=== PATIENT | male | born 1960 | race Caucasian/White ===

== ENCOUNTER 2016-04-30 07:02 | Inpatient (IN) ==
--- NOTE | 2016-04-29 21:15 | Discharge Summary ---
<Etelvina Coronado - Last Filed: 04/29/16 21:13> Date of Encounter: 04/29/16 - Discharge Diagnosis (1) Rotator cuff tear arthropathy of right shoulder Priority: Primary Status: Acute (2) Status post total shoulder arthroplasty Priority: Primary Status: Acute Qualifiers: Laterality: right Qualified Code(s): Z96.611 - Presence of right artificial shoulder joint (3) COPD (chronic obstructive pulmonary disease) Priority: Secondary Status: Chronic Qualifiers: COPD type: unspecified COPD Qualified Code(s): J44.9 - Chronic obstructive pulmonary disease, unspecified (4) HTN (hypertension) Priority: Secondary Status: Chronic Qualifiers: Hypertension type: essential hypertension Qualified Code(s): I10 - Essential (primary) hypertension (5) Chronic pain Priority: Secondary Status: Chronic Comments: Chronically takes [place] 5/325 - LD 04/06/16 - #180 given. - Discharge Medications Home Medications: Albuterol Sulfate [Ventolin Hfa] 2 puff PO Q4H PRN 11/28/15 [History] Alprazolam [Xanax 1 MG Tablet] 1 mg PO HS 11/28/15 [History] Atenolol [Tenormin] 50 mg PO DAILY 11/28/15 [History] Duloxetine HCl [Cymbalta] 60 mg PO DAILY 11/28/15 [History] Gabapentin [Neurontin] 300 mg PO HS 11/28/15 [History] Hydrochlorothiazide 12.5 mg PO DAILY 11/28/15 [History] Lisinopril [Zestril] 20 mg PO DAILY 11/28/15 [History] Methocarbamol [Robaxin-750] 750 mg PO Q4H 11/28/15 [History] Mometasone/Formoterol [Dulera 200 Mcg/5 Mcg Inhaler] 2 puff IH BID 11/28/15 [ History] Montelukast [Singulair] 10 mg PO DAILY 11/28/15 [History] Omeprazole [PriLOSEC] 20 mg PO DAILY 11/28/15 [History] OxyCODONE Immed Rel [Roxicodone 5 MG] 5 - 10 mg PO Q6H PRN #40 tablet 04/29/16 [ Rx] Acetaminophen [Tylenol] 500 mg PO DAILY 04/30/16 [History] BuPROPion XL (24 HR) [Wellbutrin XL] 150 mg PO DAILY 04/30/16 [History] HYDROcodone/Acet 5/325 mg [[place] 5-325 mg] 1 tab PO Q4H PRN 04/30/16 [History] Tiotropium [Spiriva] 18 mcg IH 0700 04/30/16 [History] Allergies/Adverse Reactions: Allergies Cyclobenzaprine [From Flexeril] Adverse Reaction (Verified 04/30/16 08:23) Nausea Diclofenac Adverse Reaction (Verified 04/30/16 08:23) Headache loratadine Adverse Reaction (Verified 04/30/16 08:23) Nausea nabumetone Adverse Reaction (Verified 04/30/16 08:23) Nausea Tizanidine Adverse Reaction (Verified 04/30/16 08:23) Headache Primary care physician: Laya Dunlap CNP - Patient Status Disposition: Home, Self-Care Condition: Good - Discharge Instructions Follow Up With: Scott Hicks MD [Partnered Physician] - 05/29/16 9:20 am Etelvina Coronado PAC [Physician Nut Sorter Operator] - 05/11/16 8:00 am Laya Dunlap CNP [Primary Care Provider] - 05/11/16 8:45 am Guille Brown Jr, MD [Partnered Physician] - 05/31/16 11:15 am Additional Instructions: Discharge Instructions: Total Shoulder Please call [facility] ([phone]), your Primary Care Physician, or report to the Emergency Room if you have any of the following symptoms: Nausea, vomiting, fever greater that 101.5, swelling, chest pain, shortness of breath, increased pain/redness/drainage/odor for your incision site, numbness/ tingling, or any other concerning symptoms. ACTIVITY: Always keep your arm in the sling. Do not raise your arm away from your body. Do not use your arm to help with getting in or out of bed. No weight bearing permitted. Only perform those exercises given to you by your therapist. MEDICATIONS: Upon discharge resume your home medications. Take all the medications as prescribed. Take a stool softener if taking narcotic pain medications. Stool softeners are only effective if you drink enough fluids. Drink 6-8 glass of water or fluids a day, unless this is not allowed for another health problem. Despite using stool softeners, if you haven't had a bowel movement in 3 days, please switch to a gentle laxative. Gentle laxatives are sold over the counter. You should have a bowel movement within 24 hours, if not call the office. You will be discharged from the hospital with a prescription for pain medication. You are encouraged to decrease the use of narcotic pain medication as tolerated. Should you require a refill, please call the office. [facility] prescribes narcotic pain medication for only 4-6 weeks after surgery. If you require pain medication beyond this time period, you may be referred to your Primary Care Physician or to the Pain Clinic for further evaluation. Plan ahead for refills on pain medication as many narcotics either need to be picked up at the office or mailed. It is best to call 48-72 hours in advance of needing a prescription refill so you don't run out of medication. To help control the post-operative pain, you may take NSAIDs (Aleve,Advil, Motrin, ibuprofen, naprosyn) or Tylenol as prescribed on the bottle in addition to the pain medication. ANTICOAGULATION (blood thinners): Continue your Aspirin, Lovenox or Coumadin as prescribed to help prevent a blood clot in the leg or in the lungs. As long as your incision remains dry and you tolerate the NSAIDs (Aleve, Advil, Motrin, ibuprofen, naprosyn), it is OK to use the NSAIDS while you are taking your anticoagulation medication. Should your incision start to drain, stop the NSAID and contact our office. Common symptoms of blood clot in the legs include: localized pain, swelling, calf tenderness, redness or discoloration of the skin. Blood clot in the lung symptoms include: shortness of breath, rapid pulse, sweating, and chest pain that worsens with deep breathing, coughing up blood, lightheadedness, and feelings of anxiety. If you experience any of these symptoms notify your physician immediately, go to the emergency room, or if having trouble breathing , call 911. WOUND CARE: Leave the dressing on for 7 days. You may change the dressing if it becomes saturated greater than 50%. You can shower but not a tub bath or submerge your incision in water. Wash your hands with antibacterial soap, rinse and dry prior to any wound care. If you have megan the visiting nurse or rehab facility can remove the stapes 10-14 days after surgery and place steri -strips across the wound. Leave the steri-strips in place until they fall off on their won. You may let water from the shower run on top of the steri- stirips. If you do not have a visiting nurse or rehab facility, you will need to return to the office at 10-14 days for the megan to be removed. FOLLOW-UP: Please follow up with your surgeon in the orthopedic clinic, as scheduled - Hospital Course Hospital course: Mr. Mosher is a 55 year old male - Time Spent with Patient Total time spent providing and/or coordinating discharge services: <Scott Hicks - Last Filed: 04/30/16 17:12> Date of Encounter: 04/30/16 Time of Encounter: 17:12 - Discharge Diagnosis (1) Rotator cuff tear arthropathy of right shoulder Priority: Primary Status: Acute (2) COPD (chronic obstructive pulmonary disease) Priority: Secondary Status: Chronic Qualifiers: COPD type: unspecified COPD Qualified Code(s): J44.9 - Chronic obstructive pulmonary disease, unspecified (3) Chronic pain Priority: Secondary Status: Chronic Qualifiers: Chronic pain type: other chronic pain Qualified Code(s): G89.29 - Other chronic pain (4) HTN (hypertension) Priority: Secondary Status: Chronic Qualifiers: Hypertension type: essential hypertension Qualified Code(s): I10 - Essential (primary) hypertension (5) Cervical radiculopathy Priority: Secondary Status: Chronic (6) Cervical stenosis of spine Priority: Secondary Status: Chronic Primary care physician: Laya Dunlap CNP - Patient Status Functional capacity at discharge: independent ambulation Overall status at discharge: patient is progressing back to baseline - Hospital Course Hospital course: Mr. Mosher is a 55 year old male The patient had an uneventful postoperative course. They received antibiotics and physical therapy and were discharged in stable condition. There will follow -up in the office in 2 weeks. - Time Spent with Patient Total time spent providing and/or coordinating discharge services:
[2016-04-30] MEDS ORDERED: *HR* Midazolam HCl 2 MG/2 ML VIAL ONE (07:12)
[2016-04-30] MEDS ORDERED: *HR* Propofol 200 MG/20 ML VIAL IVP ONE (07:12)
[2016-04-30] MEDS ORDERED: *HR* FentaNYL (PF) 100 MCG/2 ML VIAL ONE ×2 (07:12→09:24)
[2016-04-30] MEDS ORDERED: Lidocaine -MPF 2% 2 ML VIAL ONE (07:13)
[2016-04-30] MEDS ORDERED: *HR* Succinylcholine 200 MG/10 ML VIAL IVP ONE (07:13)
[2016-04-30] MEDS ORDERED: Albuterol 2.5 MG/3 ML NEBULIZER IH ONE (07:17)
[2016-04-30] MEDS ORDERED: Lidocaine 1% 20 ML MDV ID ONE (07:17)
[2016-04-30] MEDS ORDERED: CeFAZolin Pre 2,000 MG/100 ML 2,000 MG/100 ML BAG IVPB ONE (07:17)
--- NOTE | 2016-04-30 07:43 | History & Physical Report ---
Date of Encounter: 04/30/16 Time of Encounter: 07:42 24 Hour HP Update - Instructions Instructions: If the History and Physical is less than 30 days old and was completed prior to A.M. admission and or procedure and has NOT been updated on calendar day of procedure please complete this update prior to performing procedure. - Update Patient reports changes in Medical Condition: No Changes in assessment/condition: No Changes in Medication: No Preop tests/diagnostics Reviewed: Yes Surgery Remains Indicated: Yes Consent for Planned Operative Procedure(s) Verified: Yes - Pre-Operative Checklist Preoperative Checklist Indicated: No Prophylactic Antibiotic Ordered: Yes Is VTE Prophylaxis Indicated?: Yes
[2016-04-30] MEDS ORDERED: *HR* Promethazine 25 MG/ML VIAL IVP PRN (07:45)
[2016-04-30] MEDS: Ringers Solution, Lactated 1,000 ML IVC SCH ×2 (07:48→10:10)
[2016-04-30] MEDS ORDERED: Famotidine 20 MG/2 ML VIAL IVP ONE (07:48)
[2016-04-30] MEDS ORDERED: Gabapentin 300 MG CAPSULE PO STA (07:49)
--- NOTE | 2016-04-30 07:52 | Anesthesia Evaluation PreOp ---
Date of Encounter: 04/30/16 Time of Encounter: 07:50 - Past History Planned Operation: R-shoulder total reverse Cardiac History: HTN (maintained on Lisinopril, Hctz, Atenolol) Pulmonary History: Smoker, Asthma (MENA), COPD (maintained on Spiriva, Dulera), Other (MENA) CAMP TENDER History: Other (Chronic Pain [C-spine faciet arthropathy & L3-6 facet arthropathy & disk herniation] maintained on Gabapentin. Anxiety/Depression maintained on Wellbutrin) Other Medical History: GERD (maintained on Omeprazole), Other (RA) Anesthesia History: No Prior Anesthetic Complications, Past Anesthesia (Double Hernia Surgery, L-wrist, ACDF c4-5 11/2015) Alcohol Use: occasionally Drug use: none Medications and Allergies Aclidinium [place] [Tudorza Pressair] 1 puff IH BID 11/28/15 [History] Albuterol Sulfate [Ventolin Hfa] 2 puff PO Q4H PRN 11/28/15 [History] Alprazolam [Xanax 1 MG Tablet] 1 mg PO HS 11/28/15 [History] Atenolol [Tenormin] 50 mg PO DAILY 11/28/15 [History] Cyanocobalamin (Vitamin B-12) [Vitamin B-12] 1,000 mcg SL DAILY 11/28/15 [ History] Duloxetine HCl [Cymbalta] 60 mg PO DAILY 11/28/15 [History] Gabapentin [Neurontin] 300 mg PO TID 11/28/15 [History] Hydrochlorothiazide 12.5 mg PO DAILY 11/28/15 [History] Lisinopril [Zestril] 20 mg PO DAILY 11/28/15 [History] Methocarbamol [Robaxin-750] 750 mg PO Q4H 11/28/15 [History] Mometasone/Formoterol [Dulera 200 Mcg/5 Mcg Inhaler] 2 puff IH BID 11/28/15 [ History] Montelukast [Singulair] 10 mg PO DAILY 11/28/15 [History] Omeprazole [PriLOSEC] 20 mg PO DAILY 11/28/15 [History] OxyCODONE Immed Rel [Roxicodone 5 MG] 5 - 10 mg PO Q6H PRN #40 tablet 02/12/17 [ Rx] Allergies Cyclobenzaprine [From Flexeril] Adverse Reaction (Unverified 11/28/15 07:22) Nausea Diclofenac Adverse Reaction (Unverified 11/28/15 07:22) Headache loratadine Adverse Reaction (Unverified 11/28/15 07:22) Nausea nabumetone Adverse Reaction (Unverified 11/28/15 07:22) Nausea Tizanidine Adverse Reaction (Unverified 11/28/15 07:22) Headache - Meds/Allergy Pre-op Review Medications Reviewed: Yes Allergies Reviewed: Yes Beta Blockers on Current Med List: Yes (Atenolol) If Beta Blockers taken, Date/Time (Last Dose taken): 04/30/16 @ 0800 Anesthesia Results - Labs Laboratory Tests 07/01/14 04/16/16 04/16/16 07:43 08:36 08:36 WBC 8.7 Hgb 15.4 Hct 45.9 Plt Count 264 PT 12.2 H INR 1.1 APTT 34.2 Sodium Potassium Chloride Carbon Dioxide BUN Creatinine Est GFR (Non-Af Amer) Est Mean Plasma Glucose 111 Hemoglobin A1c 5.5 04/16/16 08:36 WBC Hgb Hct Plt Count PT INR APTT Sodium 138 Potassium 4.8 H Chloride 103 Carbon Dioxide 24 BUN 18 Creatinine 1.13 Est GFR (Non-Af Amer) > 60 Est Mean Plasma Glucose Hemoglobin A1c - Imaging EKG: image reviewed (90bpm SR, possible LAE) Anesthesia Exam O2 Sat Height 1.68 m Height 1.68 m Height 1.68 m Weight 57.606 kg Weight 57.606 kg Weight 57.606 kg O2 Sat by Pulse Oximetry 97 O2 Sat by Pulse Oximetry 97 O2 Sat by Pulse Oximetry 97 Vital Signs Temp Pulse Resp BP Pulse Ox 97.9 F 71 18 138/87 97 04/30/16 07:18 04/30/16 07:18 04/30/16 07:18 04/30/16 07:18 04/30/16 07:18 Height: 5'6" Weight: 127# BMI = 20.5 NPO (# of Hours): MNoc - HEENT Pupil (Motor): Pupils equal, EOMI Mallampati: II Teeth: Edentulous Oral Opening: Greater than 3 - CAMP TENDER LOC: Oriented CAMP TENDER Motor: Normal RUE, Normal LUE, Normal RLE, Normal LLE, Normal Face CAMP TENDER Sensory: Normal: RUE, LUE, RLE, LLE, Face - Cardiac Rhythm: Regular Murmur: None - Pulmonary Breath Sounds: bilateral Clear Respiratory Effort: Symmetrical Anesthesia Assess/Plan ASA Score: 3 (Smoker, COPD, HTN, Chol, Anxiety/Depression) Anesthetic Plan: General Monitoring Plan: Standard Monitors Recovery Plan: PACU Anes Supervising Prov Stmt: Pt seen/evaluated, R&B discussed, questions answered and consent obtained.Wesley Lockhart MD
[2016-04-30] MEDS ORDERED: Tetracaine/PF 20 MG/2 ML AMPUL SPINA ONE (08:26)
--- NOTE | 2016-04-30 08:49 | Anesthesia Procedures ---
Date of Encounter: 04/30/16 Time of Encounter: 08:45 Procedures: Anesthesia - Nerve Block Procedure Date: 04/30/16 Time: 08:45 Allergies/Adv Reactions: Allergies Cyclobenzaprine [From Flexeril] Adverse Reaction (Verified 04/30/16 08:23) Nausea Diclofenac Adverse Reaction (Verified 04/30/16 08:23) Headache loratadine Adverse Reaction (Verified 04/30/16 08:23) Nausea nabumetone Adverse Reaction (Verified 04/30/16 08:23) Nausea Tizanidine Adverse Reaction (Verified 04/30/16 08:23) Headache Pre-op Diagnosis: right rotator cuff arthropathy Surgical Procedure: right reverse ball Checklist: Correct Patient Identifier, Correct procedure, History checked Correct side: Right Blood Thinner: No Monitor Applied: EKG, BP, Pulse Oximetry Supplemental Oxygen via Nasal Cannula (L/min): 2 Sedation: Versed (mg): 2 Sedation: Fentanyl (mcg): 100 Indication: Post Op Analgesia Pre-op Neuro Deficits: No Block Type: Supraclavicular, Other (ICB) Catheter placed: No Sterile Technique: Yes Ultrasound used: Yes Anatomy identified: Yes Visual spread of Local: Yes Neuro Stimulation: No Blood on Needle Aspiration: No Smooth Injection of Local: Yes Pain with Injection of Local: No Prep: Chlorhexadine Needle: 22 x 50 mm Stimuplex Local: Other (0.25% bupivicaine 28cc, 2% tetracaine 2cc) Volume (cc): 30 Number of Attempts: 1 Complications: None/effective block Vitals: Vital Signs/O2 Sat, Most Current Temp Pulse Resp BP Pulse Ox 97.9 F 83 18 143/116 98 04/30/16 07:33 04/30/16 08:35 04/30/16 08:35 04/30/16 08:35 04/30/16 08:35 Comments: peripheral nerve block with ultrasound for postoperative pain relief per dr herrera request
[2016-04-30] MEDS ORDERED: Dexamethasone 4 MG/ML VIAL ONE (09:22)
[2016-04-30] MEDS ORDERED: Ketorolac 30 MG/ML VIAL ONE (09:22)
[2016-04-30] MEDS ORDERED: *HR* Phenylephrine 10 MG/ML VIAL ONE (09:37)
[2016-04-30] MEDS ORDERED: EPHEDrine 50 MG/ML VIAL ONE (09:37)
--- NOTE | 2016-04-30 09:56 | Orthopedic Operative Note ---
Date of procedure: 04/30/16 Pre-op diagnosis: Right shoulder cuff tear arthropathy Post-op diagnosis: same Procedure: Procedure: Right Total Shoulder Replacment Reverse, biceps tenodesis Estimated blood loss: 100 cc Hardware:Arthrex large glenoid baseplate, 2 4.5 screws. 1 6.5 screw, 42 lateral glenosphere, 7 humeral stem, poly insert 3 Exam Under anesthesia: Full motion no instability Procedural Notes: Irreparable tear rotator cuff subscap irreparable Operative procedure: The patient was brought to the operating room and placed on the operating room table. After general anesthesia was administered the operative shoulder was examined. Findings were noted. The patient was placed in the modified beachchair position. All pressure points were padded appropriately. And the head was stabilized in the neutral position. The operative extremity was prepped and draped in the sterile surgical fashion. The patient received IV antibiotics prior to skin incision. A standard deltopectoral approach was made to the operative shoulder. Incision was made to the skin and subcutaneous tissue,hemo stasis was obtained with Bovie cautery. Using careful blunt dissection the cephalic vein was identified and mobilized medially. The deltopectoral interval was developed and the clavipectoral fascia was incised. The subscap was released off the lesser tuberosity and tagged with #2 FiberWire suture. The humerus was dislocated patient noted to have irreparable tear supraspinatus tendon, and the humeral cut was made along the anatomic neck. Anterior and posterior Bankart retractors were placed to expose the glenoid. The glenoid guide was seated and the centering hole was made. It was reamed with the appropriate large reamer. Large was seated and secured with (2) 4.5 screws and one 6.5 screw. The baseplate was irrigated and dried and the 42 lateral Glenosphere was seated and secured with the [place] taper. The [place] taper was tested and found to be secure the humerus was redislocated and prepared with the diaphyseal reamers, followed by a broaching process up to the appropriate size 7 in the patient's anatomic version. The metaphyseal reamer was then utilized. Trial reduction found the shoulder to be relocatable. Trial components were removed and drill holes were placed in the lesser tuberosity. They were filled with #5 FiberWire suture incorporating the biceps tendon. These sutures were used for a biceps tenodesis the subscap was irreparable. The appropriate 7 stem was impacted in place in the patient's anatomic version. Trial reduction found the shoulder to be relocatable and stable with the appropriate 3 Abbi Trial component was removed and the 3 Abbi was seated and secured the shoulder was reduced. The shoulder had excellent motion and excellent stability and no evidence of dislocation. The deep tissue was irrigated with pulse irrigation. The subscap was irreparable the biceps was tenodesed. The deltopectoral interval was closed with a running #1 PDS suture, subcutaneous tissue was irrigated and closed with 0 PDS suture, the skin was closed with Dermabond. The patient was placed in a sterile dressing, abduction brace and extubated. The patient was then transferred to the recovery room in stable condition. Anesthesia: PURA Surgeon: Scott Hicks Computer Operations Analyst: Etelvina Coronado Condition: stable Disposition: PACU
[2016-04-30] MEDS: *HR* Labetalol 100 MG/20 ML MDV IVP PRN ×2 (10:28→10:34)
[2016-04-30] MEDS: *HR* HYDROmorphone (PF) 1 MG/ML SYRINGE IVP PRN ×2 (10:35→10:42)
[2016-04-30 10:44] LABS: Hematocrit 41.4 % (37.5-50.1); Hemoglobin 13.7 g/dL (12.9-16.9)
--- NOTE | 2016-04-30 10:55 | Anesthesia Evaluation Post Op ---
Date of Encounter: 04/30/16 Time of Encounter: 10:55 - Vital Signs Vital Signs: Vital Signs/O2 Sat, Most Current Temp Pulse Resp BP Pulse Ox 97.3 F L 72 16 142/96 92 L 04/30/16 10:40 04/30/16 10:50 04/30/16 10:50 04/30/16 10:50 04/30/16 10:50 - Lungs Lungs: Clear Ascult./Percussion - Airway Airway: Non-obstructed - Cardiovascular Regular Rate - Mental Status Mental Status: Alert & Oriented, Answers Appropriately - Pain Pain Scale: 0 Pain Scale used: Numeric (1 - 10) - Nausea Vomiting Nausea Vomiting: Not Present - Hydration Hydration: Ice chips, Has not voided - Discharge PostOp Status: Transfer Patient to floor
[2016-04-30] MEDS ORDERED: *HR* HYDROmorphone (PF) 1 MG/ML SYRINGE IVP PRN (11:09)
[2016-04-30] MEDS ORDERED: Sennosides 8.6 MG TABLET PO PRN (11:09)
[2016-04-30] MEDS ORDERED: Acetaminophen 325 MG TABLET PO PRN (11:09)
[2016-04-30] MEDS ORDERED: *HR* OxyCODONE Immed Rel 5 MG TABLET PO PRN ×2 (11:09)
[2016-04-30] MEDS ORDERED: Ringers Solution, Lactated 1,000 ML IVC SCH (11:09)
[2016-04-30] MEDS ORDERED: Ondansetron 4 MG/2 ML VIAL IVP PRN (11:09)
[2016-04-30] MEDS ORDERED: Naloxone 0.4 MG/ML INJ IVP PRN (11:09)
[2016-04-30] MEDS ORDERED: Temazepam 15 MG CAPSULE PO PRN (11:09)
[2016-04-30] MEDS ORDERED: ceFAZolin 2,000 MG in D5% in Water 100 ML IVPB SCH (11:09)
[2016-04-30] MEDS ORDERED: MOM Conc 10 ML UD.LIQ PO PRN (11:09)
[2016-04-30] MEDS: Methocarbamol 750 MG TABLET PO SCH ×2 (12:28→12:29)
[2016-04-30] MEDS: ceFAZolin 2,000 MG in D5% in Water 100 ML IVPB SCH ×2 (14:02→15:12)
[2016-04-30] MEDS ORDERED: Lisinopril 20 MG TABLET PO SCH (15:30)
[2016-04-30] MEDS ORDERED: hydroCHLOROthiazide 25 MG TABLET PO SCH (15:30)
[2016-04-30 16:44] VITALS: BP 160/97
[2016-04-30] MEDS ORDERED: *HR* Enoxaparin 30 MG/0.3 ML SYRINGE SQ SCH ×2 (18:00)
[2016-04-30] MEDS ORDERED: (Mometasone/Formoterol [Dulera 200 Mcg/5 Mcg Inhaler] IH SCH (21:00)
[2016-04-30] MEDS ORDERED: ALPRAZolam 1 MG TABLET PO SCH (21:00)
[2016-04-30] MEDS ORDERED: Gabapentin 300 MG CAPSULE PO SCH (21:00)
[2016-05-01] MEDS ORDERED: Tiotropium 18 MCG inhalation IH SCH (07:00)
[2016-05-01] MEDS ORDERED: hydroCHLOROthiazide 25 MG TABLET PO SCH (09:00)
[2016-05-01] MEDS ORDERED: BuPROPion XL (24 HR) 150 MG TABLET PO SCH (09:00)
[2016-05-01] MEDS ORDERED: Lisinopril 20 MG TABLET PO SCH (09:00)
== END 2016-04-30 17:50 | disposition home or self-care (01) | DRG 315 ==
LOC: SAMDAY 07:02 → 3NENU 11:12
PROVIDERS: ADMIT Orthopaedic Surgery; ATTEND Orthopaedic Surgery